=== PATIENT | male | born 1950 | race Caucasian/White ===

== ENCOUNTER 2018-10-14 11:40 | Emergency (ER) | payer MEDICARE, OTHER | END 2018-10-14 16:21 | disposition home or self-care (01) | LOC: FTE 16:21 | DX: K11.20 Sialoadenitis, unspecified (principal); R55 Syncope and collapse; I10 Essential (primary) hypertension; Z79.82 Long term (current) use of aspirin | CPT/HCPCS: 93005; 99283-25 ==